=== PATIENT | female | born 1970 | race American Indian/Alaskan Native ===

== ENCOUNTER 2019-05-27 10:21 | Emergency (ER) | payer OTHER ==
[2019-05-27] MEDS ORDERED: TETRACAINE 0.5% OPHTH SOLN 4ML OU ONE (11:51)
[2019-05-27] MEDS ORDERED: FLUORESCEIN 1 MG STRIP OP ONE (11:51)
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
--- NOTE | 2019-05-27 12:22 | XRay Report ---
XR hand 2V RT INDICATION / CLINICAL INFORMATION: laceration 3rd proximal, r/o foreign body. COMPARISON: None available. FINDINGS: BONES/JOINT(S): No acute fracture or subluxation. No significant degenerative changes. SOFT TISSUES: No significant abnormality. No radiopaque foreign bodies or soft tissue gas. ADDITIONAL FINDINGS: None. Signer Name: Milan Blevins MD Signed: 05/27/2019 12:17 PM Workstation Name: [id number]
[2019-05-27] MEDS ORDERED: TETANUS,DIPH,PERTUSS(ACELL) VACCINE 0.5 ML SYRINGE IM ONE (12:41)
[2019-05-27 12:56] VITALS: BP 121/60
== END 2019-05-27 12:55 | disposition home or self-care (01) ==
LOC: ED 10:21
DX: S61.411A Laceration without foreign body of right hand, initial encounter (principal); S76.011A Strain of muscle, fascia and tendon of right hip, initial encounter; H57.11 Ocular pain, right eye; I10 Essential (primary) hypertension; Z79.899 Other long term (current) drug therapy; V49.49XA Driver injured in collision with other motor vehicles in traffic accident, initial encounter; Y93.89 Activity, other specified; Y92.410 Unspecified street and highway as the place of occurrence of the external cause; Y99.8 Other external cause status
CPT/HCPCS: 90471; 90715